=== PATIENT | male | born 1975 | race Caucasian/White ===

== ENCOUNTER 2017-01-26 14:05 | Day surgery (SDC) | payer OTHER ==
[~2017-01-26] VITALS: Ht 180.3 cm; Wt 101.9 kg
[2017-01-26] MEDS ORDERED: SODIUM CHLORIDE 0.9% FLUSH 10 ML FLUSH IV FLUSH PRN (15:30)
[2017-01-26] MEDS ORDERED: SODIUM BICARBONATE 8.4% INJ 50 ML ONE (15:36)
[2017-01-26] MEDS ORDERED: LIDOCAINE 1%/EPINEPHrine 1:100,000 SOLN 20 ML VIAL ONE (15:36)
[2017-01-26] MEDS ORDERED: LIDOCAINE HCL 1% PF 30 ML VIAL ONE (15:37)
[2017-01-26] MEDS ORDERED: fentaNYL CITRATE 250 MCG/5 ML AMP ONE (15:37)
[2017-01-26] MEDS ORDERED: MIDAZOLAM HCL 5 MG/5 ML VIAL ONE (15:37)
[2017-01-26 15:40] VITALS: BP 150/94; PULSE 71; RESP 18; TEMP 98.2; O2SAT 98
[2017-01-26] MEDS ORDERED: ceFAZolin INJ 1,000 MG VIAL ONE (15:55)
--- NOTE | 2017-01-26 16:28 | HHI.PR ---
Immediate Post Op Note Procedure Date: Jan 26, 2017 Pre Op Diagnosis: L LE venous insufficiency Post Op Diagnosis: L LE venous insufficiency Surgeon: Willis Oglesby Economic Research Analyst(s): none Procedure: L GSV RFA Findings: no DVT Complications: none Estimated blood loss: 10mL Anesthesia: MAC Drains: None Fluids: 500mL IVF Patient to: Other (DOCU) Patient Condition: Good Date/Time of Procedure: SEE SURGICAL CARE RECORD Willis Oglesby MD Jan 26, 2017 16:28
[2017-01-26] MEDS ORDERED: SODIUM CHLORIDE 0.9% FLUSH 10 ML FLUSH IV FLUSH SCH (21:00)
--- NOTE | 2017-01-27 19:07 | MP ---
cc: CARMEN OGLESBY DATE OF SURGERY 01/27/17 PRIMARY DIAGNOSIS Left lower exam venous insufficiency POSTOPERATIVE DIAGNOSIS Left lower exam venous insufficiency PROCEDURE Left greater saphenous vein radiofrequency ablation PABLO Oglesby MD SOFTWARE SUPPORT ENGINEER SURGEON None ANESTHESIA Local with sedation INDICATIONS Dr. Dan is a 41-year-old gentleman who has left lower extremity venous insufficiency and has failed compression therapy. He is taken to the operating room for radiofrequency ablation. PROCEDURE IN DETAIL Informed consent obtained from patient. He was taken to operating room and placed supine on the operating table. Appropriate time-out was taken to ensure patient identity, operative site and planned procedure. 2 grams of Ancef was initiated prior to skin puncture. This will be discontinued after a single preoperative dose. Everyone in the room agreed with time-out and we proceeded. His left leg was prepped and draped and with the patient in reverse Trendelenberg position. Skin overlying the proximal calf greater saphenous vein was anesthetized with lidocaine and the saphenous vein was accessed with a 21 gauge micropuncture needle. This was exchanged using Seldinger technique for a 7-Beninese sheath through which the venous closure vas catheter was positioned up to 2 cm from the saphenofemoral junction. The patient was then placed in Trendelenburg position and the saphenous vein was anesthetized with joao-saphenous tumescence and the vein was segmentally ablated. Catheter and sheath were removed, pressure held for hemostasis. Completion duplex showed no evidence of DVT in the femoral vein. The leg was wrapped in an Taras bandage. The patient was transferred to the recovery room in stable condition. I was present and scrubbed to perform the entire procedure. MD HEATHER Bran/ /5:57 PM /6:55 PM KORIN
== END 2017-01-26 18:44 | disposition home or self-care (01) ==
LOC: HDOC 14:05 → HDIC 14:05 → HDOC 18:44
PROVIDERS: ATTEND Surgery
DX: I87.2 Venous insufficiency (chronic) (peripheral) (principal)
CPT/HCPCS: 36475; 99152; 99153; J0690; J2250; J3010